=== PATIENT | female | born 2000 | race Caucasian/White ===

== ENCOUNTER 2024-09-21 08:04 | Emergency (ER) | payer BC, SELFPAY ==
[2024-09-21 08:17] VITALS: BP 101/68; PULSE 77; RESP 16; TEMP 36.2; O2SAT 100
--- NOTE | 2024-09-21 08:29 | ED_ITS ---
HPI - Ear Problem General Chief complaint: Ear Stated complaint: CLOGGED EAR Time Seen by Provider: 09/21/24 08:18 Source: patient and RN notes reviewed Mode of arrival: ambulatory Limitations: no limitations History of Present Illness HPI Narrative: Patient presents today complaining of bilateral ear clogging, right greater than left for the last several days leading to decreased hearing. She has tried flushing home without relief. Denies pain or drainage. Denies any URI symptoms. Related Data Home Medications ?Medication ?Instructions ?Recorded ?Confirmed ?Last Taken ?Type adalimumab-ryvk 40 mg/0.4 mL mg subcut 09/21/24 Unknown History subcutaneous auto-injector kit Allergies Allergy/AdvReac Type Severity Reaction Status Date / Time No Known Allergies Allergy Verified 09/21/24 08:22 PMFSH Comments At time of signature, I have reviewed and agree with nursing past medical, surgical, social and family history unless otherwise noted. Please see nursing chart for further information. There is no relevant family history pertinent to the presenting complaint Exam Narrative: GENERAL: Well-appearing, well-nourished, and in no acute distress. HEAD: Normocephalic, atraumatic. EYES: EOMI. No redness or drainage. Conjunctivae normal. ENT: Mucous membranes pink and moist. Bilateral cerumen impactions. See procedure note. NECK: Normal AROM. CHEST: No respiratory distress. EXTREMITIES: Normal range of motion. No edema. SKIN: Warm, dry, no rash. Capillary refill normal. Normal skin turgor. NEURO: No focal deficits. Alert and oriented x3. Gait steady. PSYCH: Normal affect. No signs of depression or anxiety. Course Course Level of Care: Express Care Visit Vital Signs Vital signs: Vital Signs Temperature 97.2 F L 09/21/24 08:17 Pulse Rate 77 09/21/24 08:17 Respiratory Rate 16 09/21/24 08:17 Blood Pressure 101/68 09/21/24 08:17 Pulse Oximetry 100 09/21/24 08:17 Temperature 97.2 F L 09/21/24 08:17 Pulse Rate 77 09/21/24 08:17 Respiratory Rate 16 09/21/24 08:17 Blood Pressure 101/68 09/21/24 08:17 Pulse Oximetry 100 09/21/24 08:17 Reviewed Procedures Ear Wax Removal Both Ears: Ear Wax Removal Date: 09/21/24 Ear Wax Removal Time: 08:31 Cerumenolytic Used: other (Water and small amount of peroxide) Results: Re-examined: cerumen removed completely TM Examination: TM(s) intact, normal appearance Ear Canal Exam: atraumatic Patient Tolerated Procedure: well Complications: no problems Technique: ear canal irrigated and ear canal curetted Medical Decision Making MDM Narrative Medical decision making narrative: 24-year-old female patient presents with bilateral ear clogging with exam consistent with cerumen impaction. Cerumen completely removed from bilateral ears. Bilateral TMs and canals normal. Hearing back to baseline bilaterally. Vital signs stable. Anticipatory guidance given. Differential Diagnosis Differential Diagnosis: Otitis media, otitis externa, ruptured TM, serous otitis, cerumen impaction Vital Signs Vital Signs: Vital Signs Temperature 97.2 F L 09/21/24 08:17 Pulse Rate 77 09/21/24 08:17 Respiratory Rate 16 09/21/24 08:17 Blood Pressure 101/68 09/21/24 08:17 Pulse Oximetry 100 09/21/24 08:17 Temperature 97.2 F L 09/21/24 08:17 Pulse Rate 77 09/21/24 08:17 Respiratory Rate 16 09/21/24 08:17 Blood Pressure 101/68 09/21/24 08:17 Pulse Oximetry 100 09/21/24 08:17 Critical Care Time Critical Care Time Critical Care Time: No Discharge Plan Discharge Clinical Impression: Bilateral impacted cerumen Patient Disposition: Home Condition: Stable Additional Instructions: Ear wax was removed from both ears. Follow-up with your PCP with any concerns. Patient Language: French Prescriptions: No Action adalimumab-ryvk 40 mg/0.4 mL auto-injector, kit SUBCUT Follow-up/Referrals: Hale,Marii [Other] Time of Disposition: 08:33
== END 2024-09-21 08:44 | disposition home or self-care (01) ==
PROVIDERS: Emergency Provider Nurse Practitioner
DX: H61.23 Impacted cerumen, bilateral (principal); K50.90 Crohn's disease, unspecified, without complications
CPT/HCPCS: 69210; 99202; A9270; G0463